=== PATIENT | male | born 1960 ===

== ENCOUNTER 2016-10-05 13:03 | Observation (INO) | payer MEDICAID ==
[2016-10-05 13:03] VITALS: BMI 23.6
[2016-10-05 13:09] VITALS: O2SAT 98
--- NOTE | 2016-10-05 14:24 | ED PDOC ---
HPI: Psych/Substance Abuse Time Seen by Provider: 10/05/16 13:15 Chief Complaint (Nursing): Alcohol Ingestion Chief Complaint (Provider): alcohol intoxication History Per: Patient History/Exam Limitations: no limitations Additional History Per: EMS Additional Complaint(s): Jaison Ceja is a 55 year old non-domiciled male, with a previous medical history of hypertension and depression, who presents to the ED via EMS after he was found intoxicated in public. Patient denies any medical complaints, injuries , suicidal ideation, homicidal ideation or hallucinations. He admits to drinking a lot today and reports being a frequent drinker but is unsure of how much he ingestion. PMD: none provided Past Medical History Reviewed: Historical Data, Nursing Documentation, Vital Signs Vital Signs: Last Vital Signs Temp 97.6 F 10/05/16 13:06 Pulse 56 L 10/05/16 13:06 Resp 20 10/05/16 13:06 BP 170/80 H 10/05/16 13:06 Pulse Ox 98 10/05/16 13:06 - Medical History PMH: Arthritis, Asthma, CAD, CHF, COPD, Depression, HTN, TIA Denies: Chronic Kidney Disease - Surgical History Surgical History: No Surg Hx - Family History Family History: States: Unknown Family Hx, [place] (mom ) - Immunization History Hx Tetanus Toxoid Vaccination: Yes Hx Influenza Vaccination: Yes Hx Pneumococcal Vaccination: Yes - Home Medications Home Medications: Ambulatory Orders Medication Instructions Recorded Albuterol HFA [Ventolin HFA 90 0.09 mg IH Q6 #1 puff 07/22/16 mcg/actuation (8 g)] Fluticasone/Salmeterol 250/50 1 puff INH RQ12 #1 puff 07/22/16 [Advair Diskus 250/50] Losartan [Cozaar] 50 mg PO DAILY #30 tab 07/22/16 Montelukast [Singulair] 10 mg PO HS #30 tab 07/22/16 Acetaminophen [Tylenol] 325 mg PO Q6 PRN #30 tab 08/29/16 Ibuprofen [Motrin] 600 mg PO TID #21 tab 08/29/16 Moxifloxacin [Avelox] 400 mg PO DAILY #10 tab 08/29/16 - Allergies Allergies/Adverse Reactions: Allergies Allergy/AdvReac Type Severity Reaction Status Date / Time codeine Allergy RASH Verified 07/19/16 10:33 lisinopril Allergy Unknown ITCHING Uncoded 01/25/16 21:28 Review of Systems ROS Statement: Except As Marked, All Systems Reviewed And Found Negative ( patient denies any medical complaints) Constitutional: Negative for: Other (injuries ) Psych: Negative for: Suicidal ideation, Other (homicidal ideation, hallucinations ) Physical Exam - Reviewed Nursing Documentation Reviewed: Yes Vital Signs Reviewed: Yes - Physical Exam Appears: Positive for: Well, Non-toxic, No Acute Distress Head Exam: Positive for: ATRAUMATIC, NORMAL INSPECTION, NORMOCEPHALIC Skin: Positive for: Normal Color, Warm, DRY Eye Exam: Positive for: EOMI, Normal appearance, PERRL ENT: Positive for: Normal ENT Inspection Neck: Positive for: Normal, Painless ROM Cardiovascular/Chest: Positive for: Regular Rate, Rhythm Respiratory: Positive for: CNT, Normal Breath Sounds Gastrointestinal/Abdominal: Positive for: Normal Exam, Bowel Sounds, Soft Back: Positive for: Normal Inspection Extremity: Positive for: Normal ROM Neurologic/Psych: Positive for: Alert, Oriented, Gait (unsteady ), Other ( slurred speech ) - ECG O2 Sat by Pulse Oximetry: 98 (RA) Pulse Ox Interpretation: Normal Medical Decision Making Medical Decision Making: Initial Impression: Alcohol Intoxication Initial Plan: * alcohol serum * reevaluation Scribe Attestation: Documented by Mayda Thorpe, acting as a scribe for Adam Garcia MD. Provider Scribe Attestation: All medical record entries made by the Scribe were at my direction and personally dictated by me. I have reviewed the chart and agree that the record accurately reflects my personal performance of the history, physical exam, medical decision making, and the department course for this patient. I have also personally directed, reviewed, and agree with the discharge instructions and disposition. ED OBSERVATION Date of observation admission: 10/05/16 Time of observation admission: 14:37 - Observation admission statement Patient is being placed in observation because:: alcohol intoxication - Goals of Observation Goals of observation are:: pending clinical sobriety Disposition - Clinical Impression Clinical Impression: Alcohol abuse with uncomplicated intoxication - Patient ED Disposition Is Patient to be Admitted: Transfer of Care Counseled Patient/Family Regarding: Studies Performed, Diagnosis - Disposition Disposition: Transfer of Care Disposition Time: 15:00 Condition: FAIR Patient Signed Over To: Quita Lal Y Handoff Comments: pending clinical sobriety
--- NOTE | 2016-10-05 15:07 | ED PDOC ---
- ECG O2 Sat by Pulse Oximetry: 98 (RA) Pulse Ox Interpretation: Normal Medical Decision Making Medical Decision Making: Receiving Sign Out: Pt signed out to me by Dr. Garcia pending clinical sobriety. Scribe Attestation: Documented by Lauryn Lawson acting as a scribe for Quita Lal MD. Scribe Attestation: All medical record entries made by the Scribe were at my direction and personally dictated by me. I have reviewed the chart and agree that the record accurately reflects my personal performance of the history, physical exam, medical decision making, and the department course for this patient. I have also personally directed, reviewed, and agree with the discharge instructions and disposition. Disposition - Clinical Impression Clinical Impression: Alcohol abuse with uncomplicated intoxication - POA Present On Arrival: None - Disposition Disposition: Routine/Home Disposition Time: 14:37 Condition: IMPROVED Progress Note - Review of Symptoms Events since last encounter: Time: 1700 Pt awake and alert with steady gait. Currently complaining of some difficulty due to asthma. Ordered Nebulizer treatment. Time: 1904 Pt with an abrasion on his right knee. Area cleaned and sterile bandages applies Pt to be d/c home with prophylactic antibiotics.
[2016-10-05] MEDS ORDERED: Albuterol 0.083% Inhal Sol (2.5 mg/3 mL) UD INH ONE (16:54)
[2016-10-05] MEDS ORDERED: Albuterol 0.083% Inhal Sol (2.5 mg/3 mL) UD ONE (17:02)
[2016-10-05 19:11] VITALS: BP 124/86; PULSE 96; RESP 16; TEMP 98.2
== END 2016-10-05 19:09 | disposition home or self-care (01) ==
LOC: H.ER 13:03 → H.EROBSV 14:37
PROVIDERS: ADMIT Emergency Medicine; ATTEND Emergency Medicine
DX: F10.120 Alcohol abuse with intoxication, uncomplicated (principal); Y90.8 Blood alcohol level of 240 mg/100 ml or more; Z88.6 Allergy status to analgesic agent; Z59.0 Homelessness; F32.9 Major depressive disorder, single episode, unspecified; J45.909 Unspecified asthma, uncomplicated; I25.10 Atherosclerotic heart disease of native coronary artery without angina pectoris; J44.9 Chronic obstructive pulmonary disease, unspecified; Z86.73 Personal history of transient ischemic attack (TIA), and cerebral infarction without residual deficits; S80.211A Abrasion, right knee, initial encounter; X58.XXXA Exposure to other specified factors, initial encounter; Y93.9 Activity, unspecified; Y92.9 Unspecified place or not applicable; I11.0 Hypertensive heart disease with heart failure; I50.9 Heart failure, unspecified

== ENCOUNTER 2017-02-20 01:20 | Emergency (ER) | payer MEDICAID, OTHER ==
[2017-02-20 01:21] VITALS: BMI 23.6
[2017-02-20 01:41] VITALS: O2SAT 98
[2017-02-20] MEDS ORDERED: Albuterol-Ipratrop 3 mg / 0.5 (3 ml) UD INH STA (02:09)
--- NOTE | 2017-02-20 02:12 | ED PDOC ---
HPI: General Adult Time Seen by Provider: 02/20/17 02:09 Chief Complaint (Nursing): Medical Clearance Chief Complaint (Provider): SOB/BACK PAIN History Per: Patient (56 Y/O MALE H/O DEPRESSION/ANXIETY BROUGHT TO ED FOR MEDICAL/PSYCHIATRIC CLEARANCE FOR INCARCERATION. PATIENT ADMITS ETOH TODAY. PATIENT HAS C/O BACK PAIN CURRENLTY. STATES HE HAS H/O PERCOCET USE TO CONTROL PAIN/ SEEN BY PAIN MANAGEMENT MONTHLY TO HELP WITH PAIN CONTROL. DENIES ANY SMOKING/DRUGS.) Past Medical History Reviewed: Historical Data, Nursing Documentation, Vital Signs Vital Signs: Last Vital Signs Temp 98.0 F 02/20/17 01:31 Pulse 117 H 02/20/17 01:31 Resp 18 02/20/17 01:31 BP 140/100 H 02/20/17 01:31 Pulse Ox 98 02/20/17 02:12 - Medical History PMH: Arthritis, Asthma, CAD, CHF, COPD, Depression, HTN, TIA Denies: Chronic Kidney Disease - Family History Family History: States: Unknown Family Hx, [place] (mom ) - Immunization History Hx Tetanus Toxoid Vaccination: Yes Hx Influenza Vaccination: Yes Hx Pneumococcal Vaccination: Yes - Home Medications Home Medications: Ambulatory Orders Medication Instructions Recorded Albuterol HFA [Ventolin HFA 90 0.09 mg IH Q6 #1 puff 07/22/16 mcg/actuation (8 g)] Fluticasone/Salmeterol 250/50 1 puff INH RQ12 #1 puff 07/22/16 [Advair Diskus 250/50] Losartan [Cozaar] 50 mg PO DAILY #30 tab 07/22/16 Montelukast [Singulair] 10 mg PO HS #30 tab 07/22/16 Amoxicillin/Clavulanate [Augmentin 1 tab PO BID #14 tab 12/23/16 875 MG-125 MG] Albuterol HFA [Ventolin HFA 90 2 puff IH [id number] PRN #1 inh 02/20/17 mcg/actuation (8 g)] predniSONE [predniSONE Tab] 3 tab PO DAILY #12 tab 02/20/17 - Allergies Allergies/Adverse Reactions: Allergies Allergy/AdvReac Type Severity Reaction Status Date / Time codeine Allergy RASH Verified 12/23/16 04:08 lisinopril Allergy Intermediate SHORTNESS Uncoded 12/23/16 04:08 OF BREATH Review of Systems ROS Statement: Except As Marked, All Systems Reviewed And Found Negative Physical Exam - Reviewed Nursing Documentation Reviewed: Yes Vital Signs Reviewed: Yes - Physical Exam Appears: Positive for: Well, Non-toxic, No Acute Distress Head Exam: Positive for: ATRAUMATIC, NORMAL INSPECTION, NORMOCEPHALIC Skin: Positive for: Normal Color, Warm, DRY Eye Exam: Positive for: EOMI, Normal appearance, PERRL ENT: Positive for: Normal ENT Inspection Neck: Positive for: Normal, Painless ROM Cardiovascular/Chest: Positive for: Regular Rate, Rhythm Respiratory: Positive for: Normal Breath Sounds, Wheezing Gastrointestinal/Abdominal: Positive for: Normal Exam, Bowel Sounds, Soft Back: Positive for: Normal Inspection, Vertebral Tenderness (PARALUMBAR TENDERNESS NOTED) Extremity: Positive for: Normal ROM Neurologic/Psych: Positive for: Alert, Oriented - ECG O2 Sat by Pulse Oximetry: 98 - Progress ED Course And Treament: DUONEB X 1 DOSE PREDNISONE 60 MG X 1 DOSE TORADOL 30 MG IM X 1 DOSE SEEN BY CRISIS D/C BY DR. MENDOZA DIAGNOSIS ANXIETY/DEPRESSION Disposition - Clinical Impression Clinical Impression: Asthma - Patient ED Disposition Is Patient to be Admitted: No - Disposition Referrals: [facility] [Outside] Disposition: Routine/Home Disposition Time: 04:54 Condition: FAIR Additional Instructions: PATIENT IS MEDICALLY AND PSYCHIATRICALLY CLEARED FOR INCARCERATION Prescriptions: Albuterol HFA [Ventolin HFA 90 mcg/actuation (8 g)] 2 puff IH [id number] PRN #1 inh PRN Reason: Shortness Of Breath predniSONE [predniSONE Tab] 3 tab PO DAILY #12 tab Instructions: Asthma (DC) Forms: [employer] (Icelandic)
[2017-02-20] MEDS ORDERED: Albuterol-Ipratrop 3 mg / 0.5 (3 ml) UD ONE (02:14)
[2017-02-20 05:27] VITALS: BP 144/88; PULSE 88; RESP 17; TEMP 98.1
== END 2017-02-20 05:15 ==
LOC: H.ER 01:20
DX: Z02.89 Encounter for other administrative examinations (principal); J45.909 Unspecified asthma, uncomplicated; F32.9 Major depressive disorder, single episode, unspecified; F41.9 Anxiety disorder, unspecified; I10 Essential (primary) hypertension; Z86.73 Personal history of transient ischemic attack (TIA), and cerebral infarction without residual deficits
CPT/HCPCS: 96372; 99282; J1885

== ENCOUNTER 2017-03-22 14:21 | Observation (INO) | payer MEDICAID ==
[2017-03-22 14:22] VITALS: BMI 23.6
--- NOTE | 2017-03-22 15:43 | ED PDOC ---
Syncope/Near Syncope/Dizziness Time Seen by Provider: 03/22/17 15:08 Chief Complaint (Nursing): Dizziness/Lightheaded Chief Complaint (Provider): Syncope History Per: Patient History/Exam Limitations: no limitations Current Symptoms Are (Timing): Gone Now Number Of Syncopal Episodes: 1 Activity At Onset Of Symptoms: Standing Associated Symptoms Preceding Syncopal Episode: Lightheadedness Seizure Or Post-ictal Symptoms: None Fall Associated With With Symptoms: No Additional Complaint(s): Jaison Ceja, a 56 year old male, with a past medical history of asthma, anxiety , arthritis and depression presents to the ED post syncopal episode. The patient states that he was at work on his way to lunch and he had been feeling light headed all day. He reports that he stopped to talk to his boss and then loss consciousness. He states that his boss caught him and the episode only lasted a few seconds. Denies convulsive activity. The patient notes that he had an episode of chest pain and states he has been having diarrhea for the last 2 days, occasionally bloody atleast 5 times per day. Denies stomach pain, vomiting , recent travel and antibiotics. Paatient also states he has had a cough for the past few weeks. PMD: FAMILY PROVIDER,NO Past Medical History Reviewed: Historical Data, Nursing Documentation, Vital Signs Vital Signs: Last Vital Signs Temp 98.0 F 03/22/17 14:23 Pulse 101 H 03/22/17 14:23 Resp 16 03/22/17 14:23 BP 156/106 H 03/22/17 14:23 Pulse Ox 99 03/22/17 14:23 - Medical History PMH: Anxiety, Arthritis, Asthma, CAD, CHF, COPD, Depression, HTN, TIA Denies: Diabetes, Hepatitis, HIV, Chronic Kidney Disease, Seizures, Sexually Transmitted Disease - Surgical History Other surgeries: valve repair (1992); Right eye surgery. - Family History Family History: States: Unknown Family Hx, [place] (mom ) - Social History Current smoker - smoking cessation education provided: Yes (daily) Ex-Smoker (has not smoked in the last 12 months): Yes Alcohol: Social Drugs: Other (marijuana) - Immunization History Hx Tetanus Toxoid Vaccination: Yes Hx Influenza Vaccination: Yes Hx Pneumococcal Vaccination: Yes - Home Medications Home Medications: Ambulatory Orders Medication Instructions Recorded No Known Home Med 03/22/17 - Allergies Allergies/Adverse Reactions: Allergies Allergy/AdvReac Type Severity Reaction Status Date / Time codeine Allergy RASH Verified 12/23/16 04:08 lisinopril Allergy Intermediate SHORTNESS Uncoded 12/23/16 04:08 OF BREATH Review of Systems ROS Statement: Except As Marked, All Systems Reviewed And Found Negative (and as per HPI) Constitutional: Positive for: Weakness, Malaise Cardiovascular: Positive for: Chest Pain, Light Headedness Respiratory: Positive for: Cough Gastrointestinal: Positive for: Diarrhea, Hematochezia. Negative for: Vomiting , Abdominal Pain Neurological: Positive for: Other (syncoope) Physical Exam - Reviewed Nursing Documentation Reviewed: Yes Vital Signs Reviewed: Yes - Physical Exam Appears: Positive for: Non-toxic, In Acute Distress Head Exam: Positive for: ATRAUMATIC, NORMOCEPHALIC Skin: Positive for: Warm, Dry Eye Exam: Positive for: EOMI, PERRL ENT: Positive for: Pharynx Is (clear with dry mucus membranes) Neck: Positive for: Painless ROM, Supple Cardiovascular/Chest: Positive for: Regular Rate, Rhythm, Chest Non Tender. Negative for: Murmur Respiratory: Positive for: Rhonchi, Wheezing. Negative for: Accessory Muscle Use, Rales, Respiratory Distress Gastrointestinal/Abdominal: Positive for: Soft. Negative for: Tenderness, Mass , Distended, Guarding Back: Positive for: Normal Inspection. Negative for: Decreased ROM Extremity: Positive for: Normal ROM. Negative for: Deformity Neurologic/Psych: Positive for: Oriented (x3), Other (Sleepy but arousable). Negative for: Motor/Sensory Deficits - Laboratory Results Result Diagrams: 03/22/17 15:38 03/22/17 15:38 - ECG ECG: Positive for: Interpreted By Mn ECG Rhythm: Positive for: Normal QRS, Normal ST Segment, Sinus Rhythm O2 Sat by Pulse Oximetry: 99 (RA) Pulse Ox Interpretation: Normal - Radiology X-Ray: Interpreted by Mn X-Ray Interpretation: No Acute Disease Medical Decision Making Medical Decision Makin Initial Impression 56 y/o male presenting with syncope and dehydration Initial Plan: * Type and Screen * EKG * Alcohol Serum * B-Type Natriuretic * CMP * Drug Screen * Lact Acid * Phosphorous * Magnesium * Troponin * Udip * CBC * Partial Thromboplastin * Prothrombin Time * Ova and Parasite * Stool Culture * Reevaluation Scribe Attestation: Documented by Mamta Richards, acting as a scribe for Gillian Jackman MD Provider Scribe Attestation: All medical record entries made by the Scribe were at my direction and personally dictated by me. I have reviewed the chart and agree that the record accurately reflects my personal performance of the history, physical exam, medical decision making, and the department course for this patient. I have also personally directed, reviewed, and agree with the discharge instructions and disposition. Disposition - Clinical Impression Clinical Impression: Diarrhea, Chest pain, Syncope - Disposition Disposition Time: 18:00 Condition: FAIR - Pt Status Changed To: Hospital Disposition Of: Observation - POA Present On Arrival: None
[2017-03-22 15:50] LABS: BASO # 0.1 K/uL (0.0-0.2); EOS # 0.4 K/uL (0.0-0.7); EOS % 6.3 % (0.0-4.0); HEMATOCRIT 38.9 % (35.0-51.0); LYMPH # 1.4 K/uL (1.0-4.3); LYMPH % 22.7 % (20.0-40.0); MEAN CELL VOLUME 95.6 fl (80.0-94.0); MEAN CORPUSCULAR HEMOGLOBIN 32.4 pg (27.0-31.0); MEAN CORPUSCULAR HGB CONC 33.9 g/dL (33.0-37.0); MEAN PLATELET VOLUME 8.6 fl (7.2-11.7); MONO # 0.7 K/uL (0.0-0.8); NEUT # 3.6 K/uL (1.8-7.0); NRBC % 0.1 % (0.0-0.0); RED CELL DISTRIBUTION WIDTH 13.4 % (11.5-14.5); WHITE BLOOD COUNT 6.2 K/uL (4.8-10.8)
[2017-03-22 15:54] LABS: ALB/GLOB RATIO 1.2 (1.0-2.1); ALCOHOL SERUM < 10 mg/dl (0-10); ALKALINE PHOSPHATASE 70 U/L (38-126); ALT/SGPT 48 U/L (21-72); AST/SGOT 62 U/L (17-59); BILIRUBIN,TOTAL 0.7 mg/dl (0.2-1.3); BLOOD UREA NITROGEN 14 mg/dl (9-20); CALCIUM 9.1 mg/dL (8.4-10.2); CARBON DIOXIDE 27 mmol/L (22-30); CHLORIDE 101 mmol/L (98-107); GFR AFRICAN-AMERICAN > 60; GLUCOSE,RANDOM 82 mg/dL (75-110); MAGNESIUM 1.8 MG/DL (1.6-2.3); PHOSPHOROUS 3.8 mg/dl (2.5-4.5); POTASSIUM 3.9 MMOL/L (3.6-5.0); SODIUM 139 mmol/l (132-148); TOTAL PROTEIN 7.7 G/DL (6.3-8.2)
[2017-03-22 16:35] LABS: PARTIAL THROMBOPLASTIN TIME 30.7 Seconds (25.6-37.1)
--- NOTE | 2017-03-22 18:03 | RAD ---
HISTORY: cp COMPARISON: Chest x-ray performed 08/30/15 TECHNIQUE: Chest, one view. FINDINGS: LUNGS: No focal consolidation. Please note that chest x-ray has limited sensitivity for the detection of pulmonary masses. PLEURA: No significant pleural effusion identified. No definite pneumothorax . CARDIOVASCULAR: The cardiomediastinal silhouette appears within normal limits of size. OSSEOUS STRUCTURES: No acute osseous abnormality identified. VISUALIZED UPPER ABDOMEN: Unremarkable. OTHER FINDINGS: None. IMPRESSION: No focal consolidation, significant pleural effusion, or definite pneumothorax identified.
[2017-03-22] MEDS ORDERED: Albuterol HFA 90 mcg/actuation (8 g) INH PRN (19:19)
[2017-03-22 19:28] VITALS: RESP 18
--- NOTE | 2017-03-22 19:28 | CP.PCM.HP ---
History of Present Illness - History of Present Illness History of Present Illness: CC: Syncope/chest pain This is a 56 year old male with a past medical history of valvular repair at [facility] in 1992, asthma, anxiety, arthritis, and depression, with history of alcoholism, who presents to the ED with the complaint of syncope. The patient states that he has been feeling lightheaded all day. He was on his way to lunch and stopped to talk to his boss when he lost his conciousness. His boss caught him and he gained his conciousness after only a few seconds. He states that afterwards he has an episode of constant, sharp chest pain which comes and goes. Previous today he had not had this pain. It is non reproducible and nonexertional. He relates to a small amount of spotting in the toilet over the last 2 days which he has not had before. He has no pain with defecation. He denies stomach pain, n/v, recent travel. Admits to chronic cough. In ED, the patient was found to be hemodynamically stable. Troponin is undetectable. H&H is within normal limits. Given the patient's syncope and chest pain, he is to be placed on telemetry/observation for further workup. Patient is quite lethargic and is a poor historian. Present on Admission - Present on Admission Any Indicators Present on Admission: No Review of Systems - Hematologic/Lymphatic Additional comments: GENERAL/CONSTITUTIONAL: The patient denies fever, fatigue, weakness, weight gain or weight loss. HEAD, EYES, EARS, NOSE AND THROAT: Eyes - The patient denies pain, redness, loss of vision, double or blurred vision, flashing lights or spots, dryness, Ears, nose, mouth and throat. The patient denies ringing in the ears, loss of hearing, nosebleeds, loss of sense of smell, dry sinuses, sinusitis, post nasal drip, CARDIOVASCULAR: The patient denies chest pain, chest pressure, or irregular heartbeats, RESPIRATORY: The patient admits to hx of asthma and occasional sob. He denies chronic dry cough, coughing up blood, coughing up mucus. GASTROINTESTINAL: The patient admits to occasional blood in stool over the last 2 days. He denies decreased appetite, nausea, vomiting, vomiting blood or coffee ground material, heartburn, regurgitation, diarrhea, constipation, gas , black tarry stools. GENITOURINARY: The patient denies difficult urination, pain or burning with urination, blood in the urine, frequency, or urgency MUSCULOSKELETAL: The patient denies arm, buttock, thigh or calf cramps. No joint or muscle pain. No muscle weakness or tenderness. No joint swelling, neck pain, back pain. SKIN: The patient denies easy bruising, skin redness, skin rash, hives, sensitivity to sun exposure, tightness, nodules or bumps, hair loss, color changes in the hands or feet with cold. NEUROLOGIC: The patient denies headache, dizziness, fainting, muscle spasm, loss of consciousness, sensitivity or pain in the hands and feet or memory loss. PSYCHIATRIC: The patient admits to anxiety. Denies depression, or thoughts of suicide. ENDOCRINE: The patient denies intolerance to hot or cold temperature, flushing, fingernail changes, increased thirst, or increased salt intake HEMATOLOGIC/LYMPHATIC: The patient denies anemia, bleeding tendency or clotting tendency. ALLERGIC/IMMUNOLOGIC: The patient denies rhinitis, asthma, skin sensitivity, latex allergies or sensitivity. Past Patient History - Infectious Disease Hx of Infectious Diseases: None - Tetanus Immunizations Tetanus Immunization: Unknown - Past Medical History & Family History Past Medical History?: Yes - Past Social History Smoking Status: Light Smoker < 10 Cigarettes Daily - CARDIAC Hx Congestive Heart Failure: Yes Hx Hypertension: Yes - PULMONARY Hx Asthma: Yes Hx Chronic Obstructive Pulmonary Disease (COPD): Yes - NEUROLOGICAL Hx Seizures: No Hx Transient Ischemic Attacks (TIA): Yes - HEENT Hx HEENT Problems: Yes Hx Cataracts: Yes (R eye) - RENAL Hx Chronic Kidney Disease: No - ENDOCRINE/METABOLIC Hx Endocrine Disorders: No - HEMATOLOGICAL/ONCOLOGICAL Hx Human Immunodeficiency Virus (HIV): No - INTEGUMENTARY Hx Dermatological Problems: No - MUSCULOSKELETAL/RHEUMATOLOGICAL Hx Arthritis: Yes - GASTROINTESTINAL Hx Gastrointestinal Disorders: No - GENITOURINARY/GYNECOLOGICAL Hx Sexually Transmitted Disorders: No - PSYCHIATRIC Hx Anxiety: Yes Hx Depression: Yes Hx Substance Use: Yes - SURGICAL HISTORY Hx Surgeries: Yes Hx Eye Surgery: Yes (1992) Hx Valve Replacement: Yes Other/Comment: HEART VALVE SURGERY 1992 [facility] - ANESTHESIA Hx Anesthesia: Yes Hx Anesthesia Reactions: No Hx Malignant Hyperthermia: No Meds Allergies/Adverse Reactions: Allergies Allergy/AdvReac Type Severity Reaction Status Date / Time codeine Allergy RASH Verified 12/23/16 04:08 lisinopril Allergy Intermediate SHORTNESS Uncoded 12/23/16 04:08 OF BREATH Physical Exam - Additional Findings Additional findings: Physical exam: Constitutional- cooperative, somnolent but easily arousable and responds appropriately to questions Head- NCAT, PERRL. + injected sclerae Eye- PERRL, normal accommodation ENT- normal exam, MMM. Neck- normal inspection, supple, no JVD Respiratory- CTAB, no wheezes rales rhonchi Cardiovascular- RRR, +S1, +S2 no MRG GI/Abdominal- normal bowel sounds, soft, no mass, no hsm Skin- warm, dry Extremities Exam- normal capillary refill, normal inspection Neurological Exam- alert, stable gait Psych- normal mood, normal affect Results - Vital Signs Recent Vital Signs: Last Vital Signs Temp 98.0 F 03/22/17 14:23 Pulse 101 H 03/22/17 14:23 Resp 16 03/22/17 14:23 BP 156/106 H 03/22/17 14:23 Pulse Ox 99 03/22/17 18:34 - Labs Result Diagrams: 03/22/17 15:38 03/22/17 15:38 Labs: Laboratory Results - last 24 hr 03/22/17 03/22/17 03/22/17 14:56 15:38 15:38 WBC 6.2 RBC 4.07 L Hgb 13.2 Hct 38.9 MCV 95.6 H D MCH 32.4 H MCHC 33.9 RDW 13.4 Plt Count 209 MPV 8.6 Neut % (Auto) 59.0 Lymph % (Auto) 22.7 Terry % (Auto) 11.0 H Eos % (Auto) 6.3 H Baso % (Auto) 1.0 Neut # 3.6 Lymph # 1.4 Terry # 0.7 Eos # 0.4 Baso # 0.1 PT INR APTT D-Dimer, Quantitative Sodium 139 Potassium 3.9 Chloride 101 Carbon Dioxide 27 Anion Gap 15 BUN 14 Creatinine 0.7 L Est GFR ( Amer) > 60 Est GFR (Non-Af Amer) > 60 POC Glucose (mg/dL) 78 Random Glucose 82 Calcium 9.1 Phosphorus 3.8 Magnesium 1.8 Total Bilirubin 0.7 AST 62 H ALT 48 Alkaline Phosphatase 70 Troponin I < 0.0120 NT-Pro-B Natriuret Pep 46.5 Total Protein 7.7 Albumin 4.2 Globulin 3.5 Albumin/Globulin Ratio 1.2 Alcohol, Quantitative < 10 Blood Type Antibody Screen BBK History Checked 03/22/17 03/22/17 03/22/17 15:38 15:38 17:10 WBC RBC Hgb Hct MCV MCH MCHC RDW Plt Count MPV Neut % (Auto) Lymph % (Auto) Terry % (Auto) Eos % (Auto) Baso % (Auto) Neut # Lymph # Terry # Eos # Baso # PT 10.7 INR 1.0 APTT 30.7 D-Dimer, Quantitative 167 Sodium Potassium Chloride Carbon Dioxide Anion Gap BUN Creatinine Est GFR ( Amer) Est GFR (Non-Af Amer) POC Glucose (mg/dL) Random Glucose Calcium Phosphorus Magnesium Total Bilirubin AST ALT Alkaline Phosphatase Troponin I NT-Pro-B Natriuret Pep Total Protein Albumin Globulin Albumin/Globulin Ratio Alcohol, Quantitative Blood Type B POSITIVE Antibody Screen Negative BBK History Checked No verified bt Assessment & Plan - Assessment and Plan (Free Text) Plan: ASSESSMENT/PLAN This is a 56 year old male with a past medical history of valvular repair at [facility] in 1992, asthma, anxiety, arthritis, and depression, with history of alcoholism, who is on tele/obs for chest pain and syncope. 1) Syncope w chest pain, r/o arrhythmia, ACS, with hx of valvular surgery ( likely mitral repair based on hx) - Observation on telemetry - Repeat troponins - ASA 325 mg once - Cardiology consultation with Dr. Rosendo Harris for further workup- called by ED - HGA1C - TSH - Lipid profile - Urine toxicology. ETOH (-) - Repeat EKG 2) Rectal bleeding? - Obtain stool guiac - Patient hemodynamically stable at this time - Patient only admits to spotting occasionally during BM- likely internal hemorrhoids - Type and Screen - Repeat H&H - Stool CX, Ova and parasite 3) Asthma - Appears to be controlled - Ventolin PRN 4) Hypertension hx - Monitor for now 5) DVT prophylaxis - SCDs given possibility of bleeding
[2017-03-22 20:29] LABS: THYROID STIMULATING HORMONE 2.28 mIU/ML (0.46-4.68)
[2017-03-22] MEDS ORDERED: Influenza Vaccine 18yr & older 0.5 ML/45 MCG SYR IM ONE (22:16)
--- NOTE | 2017-03-23 10:47 | CP.PCM.CON ---
History of Present Illness - History of Present Illness History of Present Illness: This 56-year-old man was brought to the emergency room by paramedics when he complained of dizziness and chest pain at his place of work and they were summoned urgently. The patient gives history of hypertension for number of years but does not see any physician on a regular basis and visits emergency rooms to have his antihypertensives prescribed. He had run out of his medications and was not taking any antihypertensives for approximately 2-3 months. He is a smoker were used to smoke as much as 2-3 packs of cigarettes a day and by his account smokes 3 every day now he is not a diabetic and has never suffered a myocardial infarction and denies symptoms of congestive cardiac failure. Gives history of a cardiac surgery which was performed through his groin in 1992 the precise nature is uncertain. The patient denies any effort related chest pain and denies any history of diabetes. Physical examination shows a middle aged man who is comfortable at rest now with a heart rate of 72 bpm and regular and a blood pressure of 136/70 mmHg. His jugular venous pressure was not elevated and there was no edema hour his lower extremities. The pedal pulses were well felt. There were no carotid bruits. The apex was not palpable. The first and second heart sounds were normal. There were no murmurs or gallops there were no rales. There were scattered rhonchi all over the chest. Abdomen was soft liver and spleen are not palpable. His electrocardiogram showed sinus rhythm with normal electro- cardiographic pattern no ST-T abnormalities indicative of an acute ischemic pattern. 2 sets of cardiac enzymes were negative for any evidence of myocyte injury. The rest of his labs were stable. Impression: Atypical chest pain with no evidence off acute coronary syndrome. History of hypertension and noncompliance with medications and a chronic cigarette use. I have strongly urged him to quit smoking. He also needs to see a physician on a regular basis to control his blood pressure well. Past Patient History - Infectious Disease Hx of Infectious Diseases: None - Tetanus Immunizations Tetanus Immunization: Unknown - Past Medical History & Family History Past Medical History?: Yes - Past Social History Smoking Status: Current Some Days Smoker - CARDIAC Hx Cardiac Disorders: Yes Hx Congestive Heart Failure: Yes Hx Hypertension: Yes - PULMONARY Hx Respiratory Disorders: Yes Hx Asthma: Yes Hx Chronic Obstructive Pulmonary Disease (COPD): Yes - NEUROLOGICAL Hx Neurological Disorder: Yes Hx Seizures: No Hx Transient Ischemic Attacks (TIA): Yes - HEENT Hx HEENT Problems: Yes Hx Cataracts: Yes (R eye) - RENAL Hx Chronic Kidney Disease: No - ENDOCRINE/METABOLIC Hx Endocrine Disorders: No - HEMATOLOGICAL/ONCOLOGICAL Hx Blood Disorders: No Hx Human Immunodeficiency Virus (HIV): No - INTEGUMENTARY Hx Dermatological Problems: No - MUSCULOSKELETAL/RHEUMATOLOGICAL Hx Musculoskeletal Disorders: Yes Hx Arthritis: Yes Hx Back Pain: Yes Hx Falls: No - GASTROINTESTINAL Hx Gastrointestinal Disorders: No - GENITOURINARY/GYNECOLOGICAL Hx Genitourinary Disorders: No - PSYCHIATRIC Hx Psychophysiologic Disorder: Yes Hx Anxiety: Yes Hx Depression: Yes Hx Substance Use: Yes (marijuana) - SURGICAL HISTORY Hx Surgeries: Yes Hx Eye Surgery: Yes (1992) Hx Valve Replacement: Yes Other/Comment: HEART VALVE SURGERY 1992 [facility] - ANESTHESIA Hx Anesthesia: Yes Hx Anesthesia Reactions: No Hx Malignant Hyperthermia: No Has any member of the family had a problem w/ anesthesia?: No Meds Allergies/Adverse Reactions: Allergies Allergy/AdvReac Type Severity Reaction Status Date / Time codeine Allergy RASH Verified 12/23/16 04:08 lisinopril Allergy Intermediate SHORTNESS Uncoded 12/23/16 04:08 OF BREATH - Medications Medications: Current Medications Acetaminophen (Tylenol 325mg Tab) 650 mg PO Q6 PRN PRN Reason: Pain, Mild (1-3) Last Admin: 03/23/17 08:54 Dose: 650 mg Albuterol (Ventolin Hfa 90 Mcg/Actuation (8 G)) 1 puff INH RQ4 PRN PRN Reason: Shortness of Breath Last Admin: 03/22/17 22:22 Dose: 1 puff Amlodipine Besylate (Norvasc) 5 mg PO DAILY PATRICIA Last Admin: 03/23/17 08:52 Dose: 5 mg Nitroglycerin (Nitrostat Sl Tab) 0.4 mg SL Q5M PRN PRN Reason: Pain, moderate (4-7) Results - Vital Signs Recent Vital Signs: Last Vital Signs Temp 98 F 03/23/17 08:03 Pulse 86 03/23/17 08:52 Resp 18 03/23/17 08:03 BP 142/88 03/23/17 08:52 Pulse Ox 97 03/23/17 08:03 - Labs Result Diagrams: 03/22/17 15:38 03/22/17 15:38 Labs: Laboratory Results - last 24 hr 03/22/17 03/22/17 03/22/17 14:56 15:38 15:38 WBC 6.2 RBC 4.07 L Hgb 13.2 Hct 38.9 MCV 95.6 H D MCH 32.4 H MCHC 33.9 RDW 13.4 Plt Count 209 MPV 8.6 Neut % (Auto) 59.0 Lymph % (Auto) 22.7 [place] % (Auto) 11.0 H Eos % (Auto) 6.3 H Baso % (Auto) 1.0 Neut # 3.6 Lymph # 1.4 [place] # 0.7 Eos # 0.4 Baso # 0.1 PT INR APTT D-Dimer, Quantitative Sodium 139 Potassium 3.9 Chloride 101 Carbon Dioxide 27 Anion Gap 15 BUN 14 Creatinine 0.7 L Est GFR ( Amer) > 60 Est GFR (Non-Af Amer) > 60 POC Glucose (mg/dL) 78 Random Glucose 82 Calcium 9.1 Phosphorus 3.8 Magnesium 1.8 Total Bilirubin 0.7 AST 62 H ALT 48 Alkaline Phosphatase 70 Troponin I < 0.0120 NT-Pro-B Natriuret Pep 46.5 Total Protein 7.7 Albumin 4.2 Globulin 3.5 Albumin/Globulin Ratio 1.2 Triglycerides Cholesterol LDL Cholesterol Direct HDL Cholesterol TSH 3rd Generation Urine Opiates Screen Urine Methadone Screen Ur Barbiturates Screen Ur Phencyclidine Scrn Ur Amphetamines Screen U Benzodiazepines Scrn U Oth Cocaine Metabols U Cannabinoids Screen Alcohol, Quantitative < 10 Blood Type Antibody Screen BBK History Checked 03/22/17 03/22/17 03/22/17 15:38 15:38 17:10 WBC RBC Hgb Hct MCV MCH MCHC RDW Plt Count MPV Neut % (Auto) Lymph % (Auto) [place] % (Auto) Eos % (Auto) Baso % (Auto) Neut # Lymph # [place] # Eos # Baso # PT 10.7 INR 1.0 APTT 30.7 D-Dimer, Quantitative 167 Sodium Potassium Chloride Carbon Dioxide Anion Gap BUN Creatinine Est GFR ( Amer) Est GFR (Non-Af Amer) POC Glucose (mg/dL) Random Glucose Calcium Phosphorus Magnesium Total Bilirubin AST ALT Alkaline Phosphatase Troponin I NT-Pro-B Natriuret Pep Total Protein Albumin Globulin Albumin/Globulin Ratio Triglycerides Cholesterol LDL Cholesterol Direct HDL Cholesterol TSH 3rd Generation Urine Opiates Screen Urine Methadone Screen Ur Barbiturates Screen Ur Phencyclidine Scrn Ur Amphetamines Screen U Benzodiazepines Scrn U Oth Cocaine Metabols U Cannabinoids Screen Alcohol, Quantitative Blood Type B POSITIVE Antibody Screen Negative BBK History Checked No verified bt 03/22/17 03/23/17 03/23/17 19:30 01:50 02:00 WBC RBC Hgb Hct MCV MCH MCHC RDW Plt Count MPV Neut % (Auto) Lymph % (Auto) [place] % (Auto) Eos % (Auto) Baso % (Auto) Neut # Lymph # [place] # Eos # Baso # PT INR APTT D-Dimer, Quantitative Sodium Potassium Chloride Carbon Dioxide Anion Gap BUN Creatinine Est GFR ( Amer) Est GFR (Non-Af Amer) POC Glucose (mg/dL) Random Glucose Calcium Phosphorus Magnesium Total Bilirubin AST ALT Alkaline Phosphatase Troponin I < 0.0120 NT-Pro-B Natriuret Pep Total Protein Albumin Globulin Albumin/Globulin Ratio Triglycerides 93 Cholesterol 188 LDL Cholesterol Direct 101 HDL Cholesterol 68 TSH 3rd Generation 2.28 Urine Opiates Screen Negative Urine Methadone Screen Negative Ur Barbiturates Screen Negative Ur Phencyclidine Scrn Negative Ur Amphetamines Screen Negative U Benzodiazepines Scrn Negative U Oth Cocaine Metabols Negative U Cannabinoids Screen Positive H Alcohol, Quantitative Blood Type Antibody Screen BBK History Checked
[2017-03-23 11:14] LABS: HEMATOCRIT 38.4 % (35.0-51.0); MEAN CELL VOLUME 95.1 fl (80.0-94.0); MEAN CORPUSCULAR HEMOGLOBIN 32.3 pg (27.0-31.0); RED CELL DISTRIBUTION WIDTH 13.6 % (11.5-14.5); WHITE BLOOD COUNT 6.8 K/uL (4.8-10.8)
[2017-03-23 11:38] LABS: BLOOD UREA NITROGEN 17 mg/dl (9-20); CALCIUM 8.8 mg/dL (8.4-10.2); CARBON DIOXIDE 24 mmol/L (22-30); CHLORIDE 105 mmol/L (98-107); GFR AFRICAN-AMERICAN > 60; GLUCOSE,RANDOM 106 mg/dL (75-110); POTASSIUM 3.7 MMOL/L (3.6-5.0); SODIUM 138 mmol/l (132-148)
[2017-03-23 12:10] VITALS: BP 123/73; PULSE 87; TEMP 98.3; O2SAT 100
--- NOTE | 2017-03-23 12:46 | CARD ---
APPROVED REPORT EXAM: Two-dimensional and M-mode echocardiogram with Doppler and color Doppler. Other Information Quality : GoodRhythm : NSR INDICATION Chest Pain Syncope Hx.of Vlvular repair 2D DIMENSIONS IVSd1.27 (0.7-1.1cm)LVDd3.49 (3.9-5.9cm) LVOT Diameter2.41 (1.8-2.4cm)PWd1.08 (0.7-1.1cm) IVSs1.25 (0.8-1.2cm)LVDs2.54 (2.5-4.0cm) FS (%) 27.0 %PWs1.24 (0.8-1.2cm) M-Mode DIMENSIONS Left Atrium (MM)3.53 (2.5-4.0cm)IVSd1.03 (0.7-1.1cm) Aortic Root3.32 (2.2-3.7cm)LVDd4.32 (4.0-5.6cm) Aortic Cusp Exc.2.29 (1.5-2.0cm)PWd1.08 (0.7-1.1cm) IVSs1.75 cmFS (%) 39 % LVDs2.65 (2.0-3.8cm)PWs1.44 cm Mitral Valve MV E Gptatobd36.0cm/sMV DECEL [id number] A Apxutsvs62.8cm/s MV PYG11txP/A ratio0.7MVA (PHT)3.77cm2 TDI Lateral E' Peak V11.98cm/sMedial E' Peak V9.21cm/sE/Lateral E'4.7 E/Medial E'6.1 Pulmonary Valve PV Peak Gtngpmut95.8cm/s Tricuspid Valve TR Peak Ickrqvgg011fp/sRAP [id number] Peak Gr.18mmHg [id number] LEFT VENTRICLE The left ventricle is normal size. There is normal left ventricular wall thickness. The left ventricular function is normal. The left ventricular ejection fraction is 65% There is normal LV segmental wall motion. The left ventricular diastolic function is normal. No left ventricle thrombus noted on this study. There is no ventricular septal defect visualized. There is no left ventricular aneurysm. There is no mass noted in the left ventricle. RIGHT VENTRICLE The right ventricle is normal size. There is normal right ventricular wall thickness. The right ventricular systolic function is normal. ATRIA The left atrium size is normal. The right atrium size is normal. The interatrial septum is intact with no evidence for an atrial septal defect. AORTIC VALVE The aortic valve is normal in structure. No aortic regurgitation is present. There is no aortic valvular stenosis. There is no aortic valvular vegetation. MITRAL VALVE The mitral valve is normal in structure. There is no evidence of mitral valve prolapse. There is no mitral valve stenosis. There is no mitral valve regurgitation noted. TRICUSPID VALVE The tricuspid valve is normal in structure. There is no tricuspid valve regurgitation noted. There is no tricuspid valve prolapse or vegetation. There is no tricuspid valve stenosis. PULMONIC VALVE The pulmonary valve is normal in structure. There is no pulmonic valvular regurgitation. There is no pulmonic valvular stenosis. GREAT VESSELS The aortic root is normal in size. The ascending aorta is normal in size. The IVC is normal in size and collapses >50% with inspiration. PERICARDIAL EFFUSION The pericardium appears normal. There is no pleural effusion. <Conclusion> Normal Echocardiogram
--- NOTE | 2017-03-23 15:53 | CARD ---
APPROVED REPORT EKG Measurement Heart [id number] <Conclusion> Normal sinus rhythm Prolonged QT Abnormal ECG
--- NOTE | 2017-03-23 15:55 | CARD ---
APPROVED REPORT EKG Measurement Heart [id number] <Conclusion> Normal sinus rhythm Normal ECG
--- NOTE | 2017-03-23 16:45 | CP.PCM.DIS ---
Provider - Provider Date of Admission: 03/22/17 18:27 Attending physician: Franklin Cruz DO Consults: Dr. Rosendo Harris, cardiology Time Spent in preparation of Discharge (in minutes): 25 Hospital Course - Lab Results Lab Results: Most Recent Lab Values WBC 6.8 K/uL (4.8-10.8) 03/23/17 11:03 RBC 4.04 Mil/uL (4.40-5.90) L 03/23/17 11:03 Hgb 13.1 g/dL (12.0-18.0) 03/23/17 11:03 Hct 38.4 % (35.0-51.0) 03/23/17 11:03 MCV 95.1 fl (80.0-94.0) H 03/23/17 11:03 MCH 32.3 pg (27.0-31.0) H 03/23/17 11:03 MCHC 34.0 g/dL (33.0-37.0) 03/23/17 11:03 RDW 13.6 % (11.5-14.5) 03/23/17 11:03 Plt Count 206 K/uL (130-400) 03/23/17 11:03 MPV 8.6 fl (7.2-11.7) 03/22/17 15:38 Neut % (Auto) 59.0 % (50.0-75.0) 03/22/17 15:38 Lymph % (Auto) 22.7 % (20.0-40.0) 03/22/17 15:38 Jay % (Auto) 11.0 % (0.0-10.0) H 03/22/17 15:38 Eos % (Auto) 6.3 % (0.0-4.0) H 03/22/17 15:38 Baso % (Auto) 1.0 % (0.0-2.0) 03/22/17 15:38 Neut # 3.6 K/uL (1.8-7.0) 03/22/17 15:38 Lymph # 1.4 K/uL (1.0-4.3) 03/22/17 15:38 Jay # 0.7 K/uL (0.0-0.8) 03/22/17 15:38 Eos # 0.4 K/uL (0.0-0.7) 03/22/17 15:38 Baso # 0.1 K/uL (0.0-0.2) 03/22/17 15:38 PT 10.7 Seconds (9.8-13.1) 03/22/17 15:38 INR 1.0 (0.9-1.2) 03/22/17 15:38 APTT 30.7 Seconds (25.6-37.1) 03/22/17 15:38 D-Dimer, Quantitative 167 ng/mlDDU (0-230) 03/22/17 17:10 Sodium 138 mmol/l (132-148) 03/23/17 11:09 Potassium 3.7 MMOL/L (3.6-5.0) 03/23/17 11:09 Chloride 105 mmol/L (98-107) 03/23/17 11:09 Carbon Dioxide 24 mmol/L (22-30) 03/23/17 11:09 Anion Gap 13 (10-20) 03/23/17 11:09 BUN 17 mg/dl (9-20) 03/23/17 11:09 Creatinine 0.9 mg/dl (0.8-1.5) 03/23/17 11:09 Est GFR ( Amer) > 60 03/23/17 11:09 Est GFR (Non-Af Amer) > 60 03/23/17 11:09 POC Glucose (mg/dL) 78 mg/dL (65-110) 03/22/17 14:56 Random Glucose 106 mg/dL (75-110) 03/23/17 11:09 Hemoglobin A1c 5.6 % (4.2-6.5) 03/22/17 19:30 Calcium 8.8 mg/dL (8.4-10.2) 03/23/17 11:09 Phosphorus 3.8 mg/dl (2.5-4.5) 03/22/17 15:38 Magnesium 1.8 MG/DL (1.6-2.3) 03/22/17 15:38 Total Bilirubin 0.7 mg/dl (0.2-1.3) 03/22/17 15:38 AST 62 U/L (17-59) H 03/22/17 15:38 ALT 48 U/L (21-72) 03/22/17 15:38 Alkaline Phosphatase 70 U/L (38-126) 03/22/17 15:38 Troponin I < 0.0120 ng/mL (0.00-0.120) 03/23/17 11:03 NT-Pro-B Natriuret Pep 46.5 pg/ml (0-900) 03/22/17 15:38 Total Protein 7.7 G/DL (6.3-8.2) 03/22/17 15:38 Albumin 4.2 g/dL (3.5-5.0) 03/22/17 15:38 Globulin 3.5 gm/dL (2.2-3.9) 03/22/17 15:38 Albumin/Globulin Ratio 1.2 (1.0-2.1) 03/22/17 15:38 Triglycerides 93 mg/DL (0-149) 03/22/17 19:30 Cholesterol 188 mg/dL (0-199) 03/22/17 19:30 LDL Cholesterol Direct 101 mg/dL (0-129) 03/22/17 19:30 HDL Cholesterol 68 MG/DL (30-70) 03/22/17 19:30 TSH 3rd Generation 2.28 mIU/ML (0.46-4.68) 03/22/17 19:30 Urine Opiates Screen Negative (NEGATIVE) 03/23/17 01:50 Urine Methadone Screen Negative (NEGATIVE) 03/23/17 01:50 Ur Barbiturates Screen Negative (NEGATIVE) 03/23/17 01:50 Ur Phencyclidine Scrn Negative (NEGATIVE) 03/23/17 01:50 Ur Amphetamines Screen Negative (NEGATIVE) 03/23/17 01:50 U Benzodiazepines Scrn Negative (NEGATIVE) 03/23/17 01:50 U Oth Cocaine Metabols Negative (NEGATIVE) 03/23/17 01:50 U Cannabinoids Screen Positive (NEGATIVE) H 03/23/17 01:50 Alcohol, Quantitative < 10 mg/dl (0-10) 03/22/17 15:38 Blood Type B POSITIVE 03/22/17 15:38 Antibody Screen Negative 03/22/17 15:38 BBK History Checked No verified bt 03/22/17 15:38 - Hospital Course Hospital Course: This is a 56 year old male with a past medical history of valvular repair at [facility] in 1992, asthma, anxiety, arthritis, and depression, with history of alcoholism, who presents to the ED with the complaint of syncope. The patient states that he has been feeling lightheaded all day. He was on his way to lunch and stopped to talk to his boss when he lost his conciousness. His boss caught him and he gained his conciousness after only a few seconds. After further discussion it sounds like he may have just been lightheaded but unsure if he completely lost his conciousness. He stated that afterwards he had an episode of constant, sharp chest pain which comes and goes. It was non reproducible and nonexertional. He relates to a small amount of blood spotting in the toilet over the last 2 days which he has not had before. He has no pain with defecation. In ED, the patient was found to be hemodynamically stable. Troponin is undetectable. H&H is within normal limits. Given the patient's syncope and chest pain, he he was to be placed on telemetry/observation for further workup. On the floor, the patient had negative serial troponins. He had no further evidence of bleeding overnight with a stable hemoglobin which was unchanged. The patient was seen by Dr. Harris on consultation for cardiology and stated that the patient was stable from a cardiac standpoint for discharge given negative findings. As he has had no further bleeding, he will be discharged to home today and is to have further workup as an outpatient with PMD. ASSESSMENT/PLAN This is a 56 year old male with a past medical history of valvular repair at [facility] in 1992, asthma, anxiety, arthritis, and depression, with history of alcoholism, who is on tele/obs for chest pain and syncope. 1) Presyncope, ACS ruled out, possible vagovagal event, no overnight events on telemetry, orthostatics negative - Cleared by Dr. Harris, cardiology, for discharge - Patient to f/u with PMD in one week or to come to ED for return of symptoms 2) Rectal bleeding? - No further bleeding noticed overnight - Hg 13.2-->13.1, stable - Discharge to home, f/u with PMD 3) Asthma - Appears to be controlled - Ventolin PRN- script given as he has no asthma medications at home 4) Hypertension hx - f/u PMD Discharge Exam - Head Exam Head Exam: ATRAUMATIC, NORMOCEPHALIC - Additional Findings Additional findings: Physical exam: Constitutional- cooperative, awake, alert. Head- NCAT, PERRL Eye- PERRL, normal accommodation ENT- normal exam, MMM. Neck- normal inspection, supple, no JVD Respiratory- CTAB, no wheezes rales rhonchi Cardiovascular- RRR, +S1, +S2 no MRG GI/Abdominal- normal bowel sounds, soft, no mass, no hsm Skin- warm, dry Extremities Exam- normal capillary refill, normal inspection Neurological Exam- alert, stable gait Psych- normal mood, normal affect Discharge Plan - Discharge Medications Prescriptions: Albuterol HFA [Ventolin HFA 90 mcg/actuation (8 g)] 1 puff INH RQ4 PRN #1 inhaler PRN Reason: Shortness Of Breath amLODIPine [Norvasc] 5 mg PO DAILY #30 tab - Follow Up Plan Condition: GOOD Disposition: HOME/ ROUTINE Instructions: Chest Pain (DC)
== END 2017-03-23 13:40 | disposition home or self-care (01) ==
LOC: H.ER 14:21 → H.ERHOLD 18:27 → H.TEL 21:20
PROVIDERS: ADMIT Internal Medicine; ATTEND Internal Medicine
DX: R55 Syncope and collapse (principal); J45.909 Unspecified asthma, uncomplicated; I11.0 Hypertensive heart disease with heart failure; I50.9 Heart failure, unspecified; F41.9 Anxiety disorder, unspecified; M19.90 Unspecified osteoarthritis, unspecified site; F32.9 Major depressive disorder, single episode, unspecified; F10.21 Alcohol dependence, in remission; R07.9 Chest pain, unspecified; Z23 Encounter for immunization; Z88.6 Allergy status to analgesic agent; Z86.73 Personal history of transient ischemic attack (TIA), and cerebral infarction without residual deficits; I25.10 Atherosclerotic heart disease of native coronary artery without angina pectoris; J44.9 Chronic obstructive pulmonary disease, unspecified
CPT/HCPCS: 36415; 71010; 80048; 80053; 80061; 82948; 83036; 83735; 83880; 84100; 84443; 84484; 85025; 85027; 85378; 85610; 85730; 86850; 86900; 87045; 87177; 87209; 93005; 93306; 99285; G0008; G0378; G0480; Q2035

== ENCOUNTER 2017-04-10 14:39 | Emergency (ER) | payer MEDICAID, OTHER ==
[2017-04-10 14:40] VITALS: BMI 23.6
[2017-04-10 14:46] VITALS: BP 162/91; PULSE 107; RESP 16; TEMP 98.4; O2SAT 99
--- NOTE | 2017-04-10 15:44 | RAD ---
HISTORY: Asthma, wheezing, Possible fluid ovld COMPARISON: Chest radiograph dated 03/22/2017 FINDINGS: LUNGS: No active pulmonary disease. PLEURA: No significant pleural effusion identified, no pneumothorax apparent. CARDIOVASCULAR: Normal. OSSEOUS STRUCTURES: Unchanged. VISUALIZED UPPER ABDOMEN: Normal. OTHER FINDINGS: None. IMPRESSION: No active disease.
[2017-04-10] MEDS ORDERED: Albuterol-Ipratrop 3 mg / 0.5 (3 ml) UD ONE (16:07)
--- NOTE | 2017-04-10 16:08 | ED PDOC ---
HPI: General Adult Time Seen by Provider: 04/10/17 14:54 Chief Complaint (Nursing): Cough, Cold, Congestion Chief Complaint (Provider): Asthma Exacerbation History Per: Patient History/Exam Limitations: no limitations Onset/Duration Of Symptoms: Days Have you had recent travel within the past 21 days to any of the following countries: [place], [place], [place] or [place]?: No Current Symptoms Are (Timing): Still Present Recently: Seen In ED, Hospitalized Additional History Per: Patient Additional Complaint(s): This is 56 y/o male with PMH of HTN, Asthma, anxiety, depression, arthritis and valvular repair 1992 comes to the ED for Asthma exacerbation. Patient admits heavy breathing since last night, patient ran out of his inhaler. Patient report b/l lower extremities swellings since last few weeks. Patient reports mild dizziness, nausea, diarrhea (possibly one bloody), cough, orthopnea and itching. Patient can walk 3 blocks w/o getting SOB. Denies any chest pain, blurred vision, fever, or urinary symptoms. Past Medical History Reviewed: Vital Signs Vital Signs: Last Vital Signs Temp 98.4 F 04/10/17 14:43 Pulse 107 H 04/10/17 14:43 Resp 16 04/10/17 14:43 BP 162/91 H 04/10/17 14:43 Pulse Ox 99 04/10/17 16:24 - Medical History PMH: Anxiety, Arthritis, Asthma, CAD, CHF, COPD, Depression, HTN, TIA Denies: Diabetes, Hepatitis, HIV, Chronic Kidney Disease, Seizures, Sexually Transmitted Disease - Surgical History Surgical History: Denies: Appendectomy Other surgeries: Valvular repair 1992 - Family History Family History: States: [place] (mom ), CAD - Social History Current smoker - smoking cessation education provided: Yes Alcohol: Occasional Drugs: Denies - Immunization History Hx Tetanus Toxoid Vaccination: Yes Hx Influenza Vaccination: Yes Hx Pneumococcal Vaccination: Yes - Home Medications Home Medications: Ambulatory Orders Medication Instructions Recorded Acetaminophen [Tylenol 325mg tab] 650 mg PO Q6 PRN tab 03/23/17 Albuterol HFA [Ventolin HFA 90 1 puff INH RQ4 PRN #1 inhaler 03/23/17 mcg/actuation (8 g)] amLODIPine [Norvasc] 5 mg PO DAILY 03/23/17 Clotrimazole 1% Cream [Lotrimin 1% 1 applic TOP BID #120 tube 04/06/17 CREAM] Albuterol HFA [Ventolin HFA 90 2 puff IH Q4H #1 puff 04/10/17 mcg/actuation (8 g)] - Allergies Allergies/Adverse Reactions: Allergies Allergy/AdvReac Type Severity Reaction Status Date / Time codeine Allergy RASH Verified 04/10/17 14:43 lisinopril Allergy Intermediate SHORTNESS Uncoded 04/10/17 14:43 OF BREATH Review of Systems Constitutional: Negative for: Fever, Weakness, Weight loss Eyes: Negative for: Pain ENT: Negative for: Ear Pain, Nose Pain Cardiovascular: Positive for: Orthopnea. Negative for: Chest Pain, Palpitations Respiratory: Positive for: Cough, Shortness of Breath. Negative for: Hemoptysis Gastrointestinal: Positive for: Nausea, Diarrhea. Negative for: Vomiting, Abdominal Pain Musculoskeletal: Negative for: Neck Pain Skin: Negative for: Rash Neurological: Negative for: Weakness, Numbness, Confusion Physical Exam - Physical Exam Appears: Positive for: No Acute Distress Head Exam: Positive for: ATRAUMATIC, NORMAL INSPECTION, NORMOCEPHALIC Skin: Positive for: Normal Color, Warm Eye Exam: Positive for: Normal appearance, EOMI ENT: Positive for: Normal ENT Inspection Neck: Positive for: Normal Cardiovascular/Chest: Positive for: Regular Rate, Rhythm, Chest Non Tender. Negative for: JVD Respiratory: Positive for: Normal Breath Sounds, Wheezing. Negative for: Accessory Muscle Use Gastrointestinal/Abdominal: Positive for: Normal Exam, Bowel Sounds, Soft. Negative for: Tenderness Back: Positive for: Normal Inspection Extremity: Positive for: Tenderness, Swelling, Other (B/l LE swelling/edema and skin color changes, white discoloration on plantar surface. (Chronic venous stasis)) - Laboratory Results Result Diagrams: 04/10/17 16:17 04/10/17 16:17 - ECG O2 Sat by Pulse Oximetry: 99 - Progress ED Course And Treament: 56 y/o male with Asthma exacerbation - CBC, CMP - Duonebs - CXR - Re-evaluate Case discussed with Dr. Merchant CBC, CMP reviewed CXR: No acute changes or fluid overload Patient feels much better will follow up with PMD Re-evaluation Time: 17:30 (No wheezing ) Condition: Improved Medical Decision Making Medical Decision Making: Differentials include: Asthma exacerbation, Chronic venous stasis Disposition - Clinical Impression Clinical Impression: Asthma - Disposition Referrals: [facility] [Outside] Disposition Time: 17:54 Condition: FAIR Prescriptions: Albuterol HFA [Ventolin HFA 90 mcg/actuation (8 g)] 2 puff IH Q4H #1 puff Instructions: Asthma (ED) Forms: [employer] (Bulgarian)
[2017-04-10] MEDS: Albuterol-Ipratrop 3 mg / 0.5 (3 ml) UD INH STA (16:17)
[2017-04-10 16:41] LABS: BASO # 0.1 K/uL (0.0-0.2); EOS # 0.3 K/uL (0.0-0.7); EOS % 4.8 % (0.0-4.0); HEMOGLOBIN 13.1 g/dL (12.0-18.0); LYMPH # 1.6 K/uL (1.0-4.3); LYMPH % 21.2 % (20.0-40.0); MEAN CELL VOLUME 94.1 fl (80.0-94.0); MEAN CORPUSCULAR HEMOGLOBIN 31.4 pg (27.0-31.0); MEAN CORPUSCULAR HGB CONC 33.4 g/dL (33.0-37.0); MEAN PLATELET VOLUME 7.3 fl (7.2-11.7); MONO # 0.7 K/uL (0.0-0.8); MONO % 9.8 % (0.0-10.0); NEUT # 4.6 K/uL (1.8-7.0); NEUT % 63.2 % (50.0-75.0); NRBC % 0.1 % (0.0-0.0); RBC 4.18 Mil/uL (4.40-5.90); RED CELL DISTRIBUTION WIDTH 13.7 % (11.5-14.5); WHITE BLOOD COUNT 7.3 K/uL (4.8-10.8)
[2017-04-10 16:50] LABS: ALB/GLOB RATIO 1.2 (1.0-2.1); ALBUMIN 4.3 g/dL (3.5-5.0); ALT/SGPT 44 U/L (21-72); AST/SGOT 34 U/L (17-59); BLOOD UREA NITROGEN 13 mg/dl (9-20); CALCIUM 9.3 mg/dL (8.4-10.2); GFR AFRICAN-AMERICAN > 60; GFR NON-AFRICAN AMERICAN > 60
== END 2017-04-10 17:59 | disposition home or self-care (01) ==
LOC: H.ER 14:39
DX: J45.901 Unspecified asthma with (acute) exacerbation (principal); F32.9 Major depressive disorder, single episode, unspecified; F41.9 Anxiety disorder, unspecified; I11.0 Hypertensive heart disease with heart failure; I25.10 Atherosclerotic heart disease of native coronary artery without angina pectoris; Z86.73 Personal history of transient ischemic attack (TIA), and cerebral infarction without residual deficits

== ENCOUNTER 2017-04-12 16:25 | Emergency (ER) | payer MEDICAID, SELFPAY ==
[2017-04-12 16:25] VITALS: BMI 23.6
[2017-04-12 16:33] VITALS: O2SAT 100
[2017-04-12 17:08] LABS: BASO # 0.1 K/uL (0.0-0.2); BASO % 1.1 % (0.0-2.0); EOS # 0.4 K/uL (0.0-0.7); EOS % 6.5 % (0.0-4.0); HEMOGLOBIN 13.2 g/dL (12.0-18.0); LYMPH # 1.9 K/uL (1.0-4.3); LYMPH % 28.3 % (20.0-40.0); MEAN CELL VOLUME 95.2 fl (80.0-94.0); MEAN CORPUSCULAR HGB CONC 32.6 g/dL (33.0-37.0); MEAN PLATELET VOLUME 7.4 fl (7.2-11.7); MONO # 0.8 K/uL (0.0-0.8); MONO % 11.3 % (0.0-10.0); NEUT # 3.5 K/uL (1.8-7.0); NEUT % 52.8 % (50.0-75.0); NRBC % 0.1 % (0.0-0.0); RBC 4.26 Mil/uL (4.40-5.90); RED CELL DISTRIBUTION WIDTH 13.5 % (11.5-14.5); WHITE BLOOD COUNT 6.6 K/uL (4.8-10.8)
--- NOTE | 2017-04-12 17:13 | US ---
PROCEDURE: Bilateral lower extremity venous duplex Doppler. HISTORY: b/l swelling COMPARISON: None available. TECHNIQUE: Bilateral common femoral, superficial femoral, popliteal and posterior tibial veins were evaluated. Flow was assessed with color Doppler, compressibility, assessment of phasic flow and augmentation response. FINDINGS: COMMON FEMORAL VEIN: Right CFV: Unremarkable. Left CFV: Unremarkable. SUPERFICIAL FEMORAL VEIN: Right SFV: Unremarkable. Left SFV: Unremarkable. POPLITEAL VEIN: Right Popliteal: Unremarkable. Left Popliteal: Unremarkable. POSTERIOR TIBIAL VEIN: Right PTV: Unremarkable. Left PTV: Unremarkable. OTHER FINDINGS: None. IMPRESSION: No evidence of deep venous thrombosis.
[2017-04-12 17:19] LABS: ALB/GLOB RATIO 1.2 (1.0-2.1); ALBUMIN 4.3 g/dL (3.5-5.0); ALT/SGPT 41 U/L (21-72); AST/SGOT 53 U/L (17-59); BLOOD UREA NITROGEN 11 mg/dl (9-20); CALCIUM 9.1 mg/dL (8.4-10.2); GFR AFRICAN-AMERICAN > 60; GFR NON-AFRICAN AMERICAN > 60
[2017-04-12 17:29] LABS: PROTHROMBIN TIME 10.7 Seconds (9.8-13.1)
--- NOTE | 2017-04-12 17:40 | ED PDOC ---
Lower Extremity Pain/Injury Time Seen by Provider: 04/12/17 16:39 Chief Complaint (Nursing): Lower Extremity Problem/Injury Chief Complaint (Provider): from clinic Additional Complaint(s): 56yo M in ED foe eval of b/l feet swelling sent from clinic to r/o DVT. PT also with SOB. no LUTZ no vison changes no chest pain Past Medical History Reviewed: Historical Data, Nursing Documentation, Vital Signs Vital Signs: Last Vital Signs Temp 97.6 F 04/12/17 16:32 Pulse 100 H 04/12/17 16:32 Resp 16 04/12/17 16:32 BP 155/89 H 04/12/17 16:32 Pulse Ox 100 04/12/17 16:32 - Medical History PMH: Anxiety, Arthritis, Asthma, CAD, CHF, COPD, Depression, HTN, TIA Denies: Diabetes, Hepatitis, HIV, Chronic Kidney Disease, Seizures, Sexually Transmitted Disease - Surgical History Surgical History: Denies: Appendectomy - Family History Family History: States: Unknown Family Hx, [place] (mom ), CAD - Immunization History Hx Tetanus Toxoid Vaccination: Yes Hx Influenza Vaccination: Yes Hx Pneumococcal Vaccination: Yes - Home Medications Home Medications: Ambulatory Orders Medication Instructions Recorded Acetaminophen [Tylenol 325mg tab] 650 mg PO Q6 PRN tab 03/23/17 Albuterol HFA [Ventolin HFA 90 1 puff INH RQ4 PRN #1 inhaler 03/23/17 mcg/actuation (8 g)] amLODIPine [Norvasc] 5 mg PO DAILY 03/23/17 Clotrimazole 1% Cream [Lotrimin 1% 1 applic TOP BID #120 tube 04/06/17 CREAM] Albuterol HFA [Ventolin HFA 90 2 puff IH Q4H #1 puff 04/10/17 mcg/actuation (8 g)] Clindamycin [Cleocin] 300 mg PO TID #30 cap 04/12/17 - Allergies Allergies/Adverse Reactions: Allergies Allergy/AdvReac Type Severity Reaction Status Date / Time codeine Allergy RASH Verified 04/12/17 16:31 lisinopril Allergy Intermediate SHORTNESS Uncoded 04/10/17 14:43 OF BREATH Review of Systems ROS Statement: Except As Marked, All Systems Reviewed And Found Negative Musculoskeletal: Positive for: Other (swelling) Physical Exam - Reviewed Nursing Documentation Reviewed: Yes Vital Signs Reviewed: Yes - Physical Exam Appears: Positive for: Well, Non-toxic, No Acute Distress Head Exam: Positive for: NORMOCEPHALIC Skin: Positive for: Normal Color, Warm, DRY Eye Exam: Positive for: EOMI, Normal appearance, PERRL Cardiovascular/Chest: Positive for: Regular Rate, Rhythm Respiratory: Positive for: CNT, Normal Breath Sounds Back: Positive for: Normal Inspection Extremity: Positive for: Normal ROM Neurologic/Psych: Positive for: Alert, Oriented - Laboratory Results Result Diagrams: 04/12/17 16:50 04/12/17 16:50 - ECG O2 Sat by Pulse Oximetry: 100 - Progress ED Course And Treament: Orders Category Date Time Status COMP METABOLIC PANEL Stat Chem 04/12/17 16:50 Completed CBC (WITH DIFFERENTIAL) Stat TAO 04/12/17 16:50 Completed D DIMER [COAG] Stat TAO 04/12/17 16:50 Received PROTHROMBIN TIME [COAG] Stat TAO 04/12/17 16:50 Received PTT [PARTIAL THROMBOPLASTIN TIME] [COAG] Stat TAO 04/12/17 16:50 Received DUPLEX LOWER EXTRM VEIN BILAT [US] Stat US 04/12/17 16:38 Completed Medical Decision Making Medical Decision Making: dVT: negative CTA: negative for PE dx: bronchitis-will given albuterol Inh LE swelling most liekly PAD will need continue f.u with pmd. however considering legs acutely swollen and red will d./c on cleocin with clinic f.u 04/12/17 04/12/17 04/12/17 16:50 16:50 16:50 WBC 6.6 RBC 4.26 L Hgb 13.2 Hct 40.5 MCV 95.2 H MCH 31.0 MCHC 32.6 L RDW 13.5 Plt Count 290 MPV 7.4 Neut % (Auto) 52.8 Lymph % (Auto) 28.3 [place] % (Auto) 11.3 H Eos % (Auto) 6.5 H Baso % (Auto) 1.1 Neut # 3.5 Lymph # 1.9 [place] # 0.8 Eos # 0.4 Baso # 0.1 PT 10.7 INR 1.0 APTT 29.0 D-Dimer, Quantitative 328 H Sodium 144 Potassium 3.8 Chloride 105 Carbon Dioxide 27 Anion Gap 16 BUN 11 Creatinine 0.9 Est GFR ( Amer) > 60 Est GFR (Non-Af Amer) > 60 Random Glucose 96 Calcium 9.1 Total Bilirubin 0.5 AST 53 ALT 41 Alkaline Phosphatase 91 Total Protein 7.9 Albumin 4.3 Globulin 3.6 Albumin/Globulin Ratio 1.2 Disposition - Clinical Impression Clinical Impression: Peripheral edema - Patient ED Disposition Is Patient to be Admitted: No Counseled Patient/Family Regarding: Studies Performed, Diagnosis, Need For Followup, Rx Given - Disposition Disposition: Routine/Home Disposition Time: 19:08 Condition: STABLE Prescriptions: Clindamycin [Cleocin] 300 mg PO TID #30 cap Instructions: Peripheral Vascular Disease (GEN) Forms: [employer] (Eritrean)
[2017-04-12] MEDS ORDERED: Iodixanol 320 MG/ML 100 ML BOTTLE IV ONE (18:01)
[2017-04-12] MEDS ORDERED: Sodium Chloride 0.9% 50 ML IV ONE (18:02)
--- NOTE | 2017-04-12 18:59 | CT ---
PROCEDURE: CT Chest with contrast (Pulmonary Angiogram) HISTORY: SOB elevated DDIMER COMPARISON: None available. TECHNIQUE: Axial computed tomography images were obtained of the chest in the pulmonary arterial phase of enhancement. Coronal and sagittal reformatted images were created and reviewed. Intravenous contrast dose: Visipaque 320, 90 cc Radiation dose: Total exam DLP = for 33.83 mGy-cm. This CT exam was performed using one or more of the following dose reduction techniques: Automated exposure control, adjustment of the mA and/or kV according to patient size, and/or use of iterative reconstruction technique. FINDINGS: PULMONARY ARTERIES: Unremarkable. No pulmonary embolism. AORTA: No acute findings. No thoracic aortic aneurysm. LUNGS: There is no infiltrate or central airway mass. No parenchymal pulmonary mass identified either. Bronchial thickening is appreciated at the bilateral upper lobe mid and distal airways somewhat and may indicate an element of bronchitis are chronic or even potentially acute basis. Further clinical correlation is advised. PLEURAL SPACES: Unremarkable. No effusion or pneuomothorax. HEART: Unremarkable. No cardiomegaly. No significant pericardial effusion. LYMPH NODES: Occasional shotty mediastinal lymph nodes are identified without prominent enlargement. BONES, CHEST WALL: Unremarkable. No fracture or destructive lesion OTHER FINDINGS: Unremarkable. IMPRESSION: 1. No CT evidence of pulmonary embolus. No pleural or pericardial effusion or infiltrate. No pneumothorax. 2. Evidence of possible bronchitis affecting upper central airways bilaterally. Further clinical correlation is advised.
[2017-04-12 19:30] VITALS: BP 134/94; PULSE 81; RESP 100; TEMP 98.3
== END 2017-04-12 21:20 | disposition home or self-care (01) ==
LOC: H.ER 16:25
DX: R60.9 Edema, unspecified (principal); J44.9 Chronic obstructive pulmonary disease, unspecified; F32.9 Major depressive disorder, single episode, unspecified; F41.9 Anxiety disorder, unspecified; I11.0 Hypertensive heart disease with heart failure; I25.10 Atherosclerotic heart disease of native coronary artery without angina pectoris; Z86.73 Personal history of transient ischemic attack (TIA), and cerebral infarction without residual deficits
CPT/HCPCS: 71275; 80053; 83880; 85025; 85378; 85610; 85730; 93970; 99283; Q9967

== ENCOUNTER 2017-11-14 18:02 | Emergency (ER) | payer MEDICAID ==
[2017-11-14 18:02] VITALS: BMI 23.6
[2017-11-14 18:06] VITALS: TEMP 98.7
--- NOTE | 2017-11-14 18:39 | ED PDOC ---
HPI: General Adult Time Seen by Provider: 11/14/17 18:27 Chief Complaint (Nursing): Medical Clearance History Per: Other Additional Complaint(s): Brought by police for medical and psychiatric eval prior to incarceration. Pt denies c/o but had surgery 1 month ago for trimaleolar fx right ankle. Has been wearing boot for ambulation. Past Medical History Vital Signs: Last Vital Signs Temp 98.7 F 11/14/17 18:13 Pulse 88 11/14/17 20:59 Resp 20 11/14/17 19:41 BP 136/76 11/14/17 20:59 Pulse Ox 98 11/15/17 04:53 - Medical History PMH: Anxiety, Arthritis, Asthma, CAD, CHF, COPD, Depression, HTN, TIA Denies: Diabetes, Hepatitis, HIV, Chronic Kidney Disease, Seizures, Sexually Transmitted Disease - Surgical History Surgical History: Denies: Appendectomy - Family History Family History: States: Unknown Family Hx, [place] (mom ), CAD - Immunization History Hx Tetanus Toxoid Vaccination: Yes Hx Influenza Vaccination: Yes Hx Pneumococcal Vaccination: Yes - Home Medications Home Medications: Ambulatory Orders Medication Instructions Recorded Albuterol HFA [Ventolin HFA 90 1 puff INH RQ4 PRN #1 inhaler 03/23/17 mcg/actuation (8 g)] Albuterol HFA [Ventolin HFA 90 2 puff IH Q4H #1 puff 04/10/17 mcg/actuation (8 g)] Ergocalciferol (Vitamin D2) 1 tab PO QWK 08/12/17 [Vitamin D2] amLODIPine [Norvasc] 1 tab PO DAILY 08/12/17 hydroCHLOROthiazide [Microzide] 1 tab PO DAILY 08/12/17 traMADol [Ultram] 1 tab PO Q12 PRN 08/12/17 Acetaminophen [Tylenol 325mg tab] 650 mg PO Q6 PRN tab 08/29/17 Aspirin 81 mg PO BID #60 tab.chew 08/29/17 Aspirin [Aspirin Chewable] 81 mg PO DAILY #30 chew 08/29/17 Atorvastatin [Lipitor] 5 mg PO HS #30 tab 08/29/17 Fluticasone/Salmeterol 250/50 1 puff INH RQ12 #1 inh 08/29/17 [Advair Diskus 250/50] Mirtazapine [Remeron] 15 mg PO HS #30 tab 08/29/17 PARoxetine [Paxil] 1 tab PO DAILY #30 tab 08/29/17 Saccharomyces Boulardi [Florastor] 250 mg PO Q12H #60 cap 08/29/17 amLODIPine [Norvasc] 5 mg PO DAILY #30 tab 08/29/17 - Allergies Allergies/Adverse Reactions: Allergies Allergy/AdvReac Type Severity Reaction Status Date / Time codeine Allergy RASH Verified 11/14/17 18:13 lisinopril Allergy Intermediate SHORTNESS Uncoded 11/14/17 18:13 OF BREATH Review of Systems Constitutional: Negative for: Fever Cardiovascular: Negative for: Chest Pain Respiratory: Negative for: Shortness of Breath Musculoskeletal: Negative for: Leg Pain, Foot Pain Physical Exam - Reviewed Nursing Documentation Reviewed: Yes Vital Signs Reviewed: Yes - Physical Exam Appears: Positive for: Non-toxic, No Acute Distress Head Exam: Positive for: ATRAUMATIC, NORMAL INSPECTION, NORMOCEPHALIC Skin: Positive for: Normal Color, Warm, DRY Eye Exam: Positive for: EOMI, Normal appearance, PERRL ENT: Positive for: Normal ENT Inspection Neck: Positive for: Normal, Painless ROM Cardiovascular/Chest: Positive for: Regular Rate, Rhythm Respiratory: Positive for: CNT, Normal Breath Sounds Gastrointestinal/Abdominal: Positive for: Normal Exam, Soft Back: Positive for: Normal Inspection Extremity: Positive for: Other (Right foot/ankle lateral maleolus. No erythema or tenderness. No drainage from 0.5 cm shallow ulcer.) Neurologic/Psych: Positive for: Alert, Oriented - ECG O2 Sat by Pulse Oximetry: 98 Disposition - Clinical Impression Clinical Impression: Alcohol use disorder, severe, dependence - Patient ED Disposition Is Patient to be Admitted: Transfer of Care - Disposition Referrals: Elisa Logan MD [Family Provider] - Disposition: Transfer of Care Disposition Time: 17:00 Condition: STABLE Additional Instructions: Patient is medically and psychiatrically cleared for incarceration. Instructions: Alcohol Abuse and Alcoholism (DC) Forms: [employer] (Korean) Patient Signed Over To: Jun Snell
--- NOTE | 2017-11-14 19:15 | ED PDOC ---
- ECG O2 Sat by Pulse Oximetry: 98 Medical Decision Making Medical Decision Making: Time: 19:00 Patient endorsed to provider by Dr. Merchant pending podiatry consult. 21:00 -Patient cleared by podiatry and to follow up at [facility] podiatry clinic. Patient cleared by psychiatrist with diagnosis of severe alcohol use disorder by Dr. Morrison. Patient is medically and psychiatrically stable for incarceration. Disposition - Clinical Impression Clinical Impression: Alcohol use disorder, severe, dependence - POA Present On Arrival: None - Disposition Referrals: Elisa Logan MD [Family Provider] - Disposition: Discharged/Transfer to Law Enforcement Disposition Time: 21:00 Condition: STABLE Additional Instructions: Patient is medically and psychiatrically cleared for incarceration. Instructions: Alcohol Abuse and Alcoholism (DC) Forms: [employer] (Norwegian)
--- NOTE | 2017-11-14 19:19 | CP.PCM.CON ---
History of Present Illness - History of Present Illness History of Present Illness: Consult note for attending Dr. Purcell, 56 y/o male with PMHx of Anxiety, Arthritis, Asthma, CAD, CHF, COPD, Depression , HTN, TIA was seen and evaluated at bedside for medical clearance prior to incarceration. Patient is in police custody at this time. Police present at bedside. Patient was brought in to be evaluated by Podiatry for clearance. Patient is 11.5 weeks s/p right ankle ORIF with syndesmotic repair (DOS 08/24/17) . Patient was seen at [facility] Podiatry clinic on 11/05/17 last and patient had x- rays performed at that time. Patient was placed in a CamBoot. Patient ambulated to the ED today in the CamBoot. Patient complains of minimal pain to the incision site, which he states worsened in the last 2-3 days. Patient denies any other pedal complaints. Patient denies F/N/V/SOB/posterior calf pain upon squeeze PMHx: Anxiety, Arthritis, Asthma, CAD, CHF, COPD, Depression, HTN, TIA PSHx: Appendectomy Allergies: Codeine, Lisinopril Review of Systems - Review of Systems All systems: reviewed and no additional remarkable complaints except Review of Systems: As per HPI Past Patient History - Infectious Disease Hx of Infectious Diseases: None - Tetanus Immunizations Tetanus Immunization: Unknown - Past Medical History & Family History Past Medical History?: Yes - Past Social History Smoking Status: Light Smoker < 10 Cigarettes Daily - CARDIAC Hx Congestive Heart Failure: Yes Hx Hypertension: Yes - PULMONARY Hx Asthma: Yes Hx Chronic Obstructive Pulmonary Disease (COPD): Yes - NEUROLOGICAL Hx Seizures: No Hx Transient Ischemic Attacks (TIA): Yes - HEENT Hx HEENT Problems: Yes Hx Cataracts: Yes (R eye) - RENAL Hx Chronic Kidney Disease: No - ENDOCRINE/METABOLIC Hx Endocrine Disorders: No - HEMATOLOGICAL/ONCOLOGICAL Hx Human Immunodeficiency Virus (HIV): No - INTEGUMENTARY Hx Dermatological Problems: No - MUSCULOSKELETAL/RHEUMATOLOGICAL Hx Arthritis: Yes - GASTROINTESTINAL Hx Gastrointestinal Disorders: No - GENITOURINARY/GYNECOLOGICAL Hx Sexually Transmitted Disorders: No - PSYCHIATRIC Hx Anxiety: Yes Hx Depression: Yes - SURGICAL HISTORY Hx Appendectomy: No - ANESTHESIA Hx Anesthesia: Yes Hx Anesthesia Reactions: No Hx Malignant Hyperthermia: No Meds Allergies/Adverse Reactions: Allergies Allergy/AdvReac Type Severity Reaction Status Date / Time codeine Allergy RASH Verified 11/14/17 18:13 lisinopril Allergy Intermediate SHORTNESS Uncoded 11/14/17 18:13 OF BREATH Physical Exam - Constitutional Appears: Well, Non-toxic, No Acute Distress - Head Exam Head Exam: ATRAUMATIC, NORMOCEPHALIC - Extremities Exam Additional comments: RLE focused exam: Vasc: DP and PT pulses palpable 2/4. Temperature gradient warm to warm. Minimal perimalleolar edema noted at surgical sites. CFT < 3 sec to all digits Derm: Linear incision noted to lateral ankle with wound dehiscence present at distal aspect of incision measuring 1 cm x 0.9 cm x 0.1 cm; wound noted to have a mixed fibrogranular base, no drainage present; no purulence noted; no fluctuance; no undermining; no tunneling; no probe to bone; no periwound erythema noted. Linear incision noted to medial ankle appears to be well coapted with no wound dehisence noted; overlying scab present. Neuro: Protective sensation grossly intact Ortho: R ankle joint ROM limited secondary to guarding. Moderate tenderness elicited upon passive ankle circumduction, dorsiflexion and plantarflexion. Mild tenderness to palpation of surgical sites. No calf pain with palpation. - Neurological Exam Neurological exam: Alert, Oriented x3 - Psychiatric Exam Psychiatric exam: Normal Affect, Normal Mood Results - Vital Signs Recent Vital Signs: Last Vital Signs Temp 98.7 F 11/14/17 18:13 Pulse 120 H 11/14/17 18:13 Resp 16 11/14/17 18:13 BP 144/100 H 11/14/17 18:13 Pulse Ox 98 11/14/17 19:15 Assessment & Plan - Assessment and Plan (Free Text) Assessment: 56 y/o male with PMHx of Anxiety, Arthritis, Asthma, CAD, CHF, COPD, Depression , HTN, TIA was seen and evaluated at bedside for medical clearance prior to incarceration Plan: Patient seen and evaluated at bedside Patient plan discussed with attending Dr. Purcell X-rays of patient reviewed from 11/05/17- Medial malleolar fracture fragment minimally displaced along the medial ankle mortise as compared to previous x- rays; hardware intact; osseous consolidation present to fibular fracture site and tibial fracture X-rays ordered today- Wound on the lateral ankle cleaned using saline and dressed using betadine, DSD - educated patient of daily dressing changes Educated on RICE protocol as per last clinic visit Patient has been cleared from the Podiatric standpoint Patient to continue ambulating in the CamBoot when weight-bearing Patient to return to Emergency Department if clinical signs of infection present - fever, nausea, vomiting, SOB, erythema and increased edema Patient will follow up ion the Podiatry clinic on 11/26/17 for post-operative evaluation
[2017-11-14 19:42] VITALS: RESP 20
[2017-11-14 21:00] VITALS: BP 136/76; PULSE 88
[2017-11-14 21:02] VITALS: O2SAT 98
--- NOTE | 2017-11-15 12:07 | RAD ---
Date of service: 11/14/2017 PROCEDURE: Right Ankle Radiographs. HISTORY: Right ankle pain. Relevant medical history: Fracture September 17, 2017. COMPARISON: None FINDINGS: BONES: No acute findings. Healing fractures distal right tibia and fibula. No evidence of orthopedic hardware failure. JOINTS: Normal. No osteoarthritis. Ankle mortise maintained. Talar dome intact SOFT TISSUES: Residual soft tissue swelling. OTHER FINDINGS: None. IMPRESSION: Soft tissue swelling without acute articular or osseous abnormality. No underlying fracture or joint abnormality.
== END 2017-11-14 21:35 ==
LOC: H.ER 18:02
DX: F10.20 Alcohol dependence, uncomplicated (principal); M25.571 Pain in right ankle and joints of right foot; Z48.01 Encounter for change or removal of surgical wound dressing

== ENCOUNTER 2018-07-25 23:38 | Emergency (ER) | payer MEDICAID ==
[2018-07-25 23:38] VITALS: BMI 24.3
[2018-07-26 00:03] VITALS: RESP 17
--- NOTE | 2018-07-26 00:35 | ED PDOC ---
HPI: General Adult Time Seen by Provider: 07/25/18 23:49 Chief Complaint (Nursing): Medical Clearance Chief Complaint (Provider): clearance History Per: Patient History/Exam Limitations: no limitations Additional Complaint(s): 57 y/o male here in police custody for medical and psychiatric clearance. Patient admits to drinking tonight, states he drinks every day. Last drink 21:00. Patient denies acute medical or psychiatric complaints. Past Medical History Reviewed: Historical Data, Nursing Documentation, Vital Signs Vital Signs: Last Vital Signs Temp 98 F 07/25/18 23:46 Pulse 100 H 07/25/18 23:46 Resp 17 07/25/18 23:46 BP 125/93 H 07/25/18 23:46 Pulse Ox 100 07/25/18 23:46 - Medical History PMH: Anxiety, Arthritis, Asthma, CAD, CHF, COPD, Depression, HTN, Pneumonia, TIA Denies: Diabetes, Hepatitis, HIV, Chronic Kidney Disease, Seizures, Sexually Transmitted Disease - Surgical History Surgical History: Coronary Stent Denies: Appendectomy - Family History Family History: States: Unknown Family Hx, [place] (mom ), CAD - Immunization History Hx Tetanus Toxoid Vaccination: Yes Hx Influenza Vaccination: Yes Hx Pneumococcal Vaccination: Yes - Home Medications Home Medications: Ambulatory Orders Medication Instructions Recorded PARoxetine [Paxil] 20 mg PO DAILY 01/07/18 Albuterol HFA [Ventolin HFA 90 2 puff IH Q4H #1 puff 07/14/18 mcg/actuation (8 g)] Aspirin [Aspirin Chewable] 81 mg PO DAILY #30 chew 07/14/18 Azithromycin 250 mg PO DAILY #4 tablet 07/14/18 Divalproex Sodium 1,500 mg PO HS #30 tablet.dr 07/14/18 Fluticasone/Salmeterol 250/50 1 puff INH RQ12 #1 inh 07/14/18 [Advair Diskus 250/50] Folic Acid 1 mg PO DAILY tab 07/14/18 Losartan [Cozaar] 50 mg PO DAILY #30 tab 07/14/18 Methylprednisolone [Medrol Dose 4 mg PO DAILY #21 mg 07/14/18 Pack (21 tabs)] amLODIPine [Norvasc] 15 mg PO DAILY #30 tab 07/14/18 hydroCHLOROthiazide [Microzide] 12.5 mg PO DAILY #30 cap 07/14/18 - Allergies Allergies/Adverse Reactions: Allergies Allergy/AdvReac Type Severity Reaction Status Date / Time codeine Allergy Severe RASH Verified 07/25/18 23:49 lisinopril Allergy Severe ANGIOEDEMA Uncoded 07/25/18 23:49 Review of Systems ROS Statement: Except As Marked, All Systems Reviewed And Found Negative Physical Exam - Reviewed Nursing Documentation Reviewed: Yes Vital Signs Reviewed: Yes - Physical Exam Appears: Positive for: Well, Non-toxic, No Acute Distress Head Exam: Positive for: ATRAUMATIC, NORMAL INSPECTION, NORMOCEPHALIC Skin: Positive for: Normal Color Eye Exam: Positive for: Normal appearance ENT: Positive for: Normal ENT Inspection Cardiovascular/Chest: Positive for: Regular Rate, Rhythm Respiratory: Positive for: Normal Breath Sounds Gastrointestinal/Abdominal: Positive for: Normal Exam Back: Positive for: Normal Inspection Extremity: Positive for: Normal ROM Neurological/Psych: Positive for: Awake, Alert, Oriented (x3) - ECG O2 Sat by Pulse Oximetry: 100 - Progress ED Course And Treament: -accucheck -crisis eval -librium PO Patient evaluated by farmworker general and cleared for discharge as per Dr. Juarez Disposition - Clinical Impression Clinical Impression: Alcohol abuse - Patient ED Disposition Is Patient to be Admitted: No Counseled Patient/Family Regarding: Studies Performed, Diagnosis, Need For Followup - Disposition Disposition: Discharged/Transfer to Law Enforcement Disposition Time: 01:00 Condition: STABLE Additional Instructions: Patient medically and psychiatrically cleared for incarceration Instructions: Alcohol Abuse and Alcoholism (DC)
[2018-07-26 00:55] VITALS: BP 129/89; PULSE 91; TEMP 98.1
[2018-07-26 01:00] VITALS: O2SAT 100
== END 2018-07-26 01:21 | disposition home or self-care (01) ==
LOC: H.ER 23:38
DX: F10.10 Alcohol abuse, uncomplicated (principal); I25.10 Atherosclerotic heart disease of native coronary artery without angina pectoris; Z86.73 Personal history of transient ischemic attack (TIA), and cerebral infarction without residual deficits; Z95.5 Presence of coronary angioplasty implant and graft